=== PATIENT | female | born 1935 | race Caucasian/White ===

== ENCOUNTER 2022-12-09 09:52 | Outpatient (CLI) | payer MEDICARE | END 2022-12-09 09:53 | disposition home or self-care (01) | LOC: CSHMAMMO 09:52 | PROVIDERS: ATTEND Internal Medicine Rheumatology | DX: M81.0 Age-related osteoporosis without current pathological fracture (principal); M85.89 Other specified disorders of bone density and structure, multiple sites | CPT/HCPCS: 77080 ==